=== PATIENT | female | born 1995 | race Caucasian/White ===

== ENCOUNTER 2021-02-19 08:01 | Emergency (ER) | payer OTHER ==
[~2021-02-19] VITALS: Ht 160 cm; Wt 66.2 kg
[2021-02-19] MEDS ORDERED: TAMIFLU75 MG PO (11:09)
[2021-02-19 11:13] VITALS: BP 95/67
== END 2021-02-19 11:14 | disposition home or self-care (01) ==
LOC: ER 08:01
DX: J10.1 Influenza due to other identified influenza virus with other respiratory manifestations (principal); Z20.822 Contact with and (suspected) exposure to COVID-19